=== PATIENT | female | born 1930 | race Caucasian/White ===

== ENCOUNTER 2016-10-21 14:47 | Emergency (ER) | payer OTHER ==
[~2016-10-21] VITALS: Ht 165.1 cm; Wt 58.0 kg
[~2016-10-21 14:47] MED LIST: AEROMIS4 INH; ALBU8I INH; ATEN1TAB74 PO; CEFU250T PO; ENAL10TA7 PO; GLUC500C3 PO; LEVO.025 PO; SIMV20 PO; ZOVI800T13 PO
[2016-10-21 14:52] VITALS: BP 119/68; PULSE 105; RESP 15; TEMP 99.5; O2SAT 99
== END 2016-10-21 18:24 | disposition left against medical advice (07) ==
LOC: PHED 14:47
DX: R42 Dizziness and giddiness (principal); R11.0 Nausea; Z53.21 Procedure and treatment not carried out due to patient leaving prior to being seen by health care provider
CPT/HCPCS: 99281

== ENCOUNTER 2017-08-08 08:39 | Inpatient (IN) | payer OTHER, MEDICARE ==
[2017-08-08] MEDS: ONDANSETRON HCL 4 MG/2 ML VIAL IV PUSH (09:28)
[2017-08-08] MEDS: SODIUM CHLORID 0.9% 500 ML INJ 500 ML IV (09:28)
[2017-08-08 09:32] LABS: AUTOMATED NEUTROPHIL # 10.1 TH/MM3 (1.8-7.7); BASOPHIL # 0.5 TH/MM3 (0-0.2); BASOPHIL % 3.9 % (0.0-2.0); EOSINOPHIL % 0.1 % (0.0-4.0); HEMATOCRIT 38.2 % (35.0-46.0); HEMO FLAGS DIFF FINAL; HEMOGLOBIN 12.6 GM/DL (11.6-15.3); LYMPHOCYTE # 0.5 TH/MM3 (1.0-4.8); MEAN CORPUSCULAR HEMOGLOBIN 30.2 PG (27.0-34.0); MEAN CORPUSCULAR HGB CONC 33.2 % (32.0-36.0); MEAN PLATELET VOLUME 8.1 FL (7.0-11.0); MONO % 6.3 % (0.0-8.0); MONOCYTE # 0.8 TH/MM3 (0-0.9); NEUT % 85.7 % (16.0-70.0); PLATELET COUNT 272 TH/MM3 (150-450); RED BLOOD COUNT 4.19 MIL/MM3 (4.00-5.30); RED CELL DISTRIBUTION WIDTH 12.9 % (11.6-17.2); WHITE BLOOD COUNT 11.9 TH/MM3 (4.0-11.0)
[2017-08-08 09:51] LABS: CALCIUM 8.9 MG/DL (8.5-10.1)
[2017-08-08 09:52] LABS: ALBUMIN 3.4 GM/DL (3.4-5.0); BICARBONATE 24.8 MEQ/L (21.0-32.0); BLOOD UREA NITROGEN 29 MG/DL (7-18); GLUCOSE,RANDOM 125 MG/DL (74-106)
[2017-08-08 09:55] LABS: ALT (GPT) 516 U/L (10-53); AST (GOT) 832 U/L (15-37); GLOMERULAR FILTRATION RATE 42 ML/MIN (>89)
[2017-08-08 09:56] LABS: TOTAL BILIRUBIN ADULT 1.3 MG/DL (0.2-1.0); TOTAL PROTEIN 7.3 GM/DL (6.4-8.2)
[2017-08-08 09:57] LABS: LIPASE 15478 U/L (73-393)
[2017-08-08 09:58] LABS: LACTIC ACID SEPSIS PROTOCOL 1.1 mmol/L (0.4-2.0)
[2017-08-08 09:58] LABS: ALKALINE PHOSPHATASE 138 U/L (45-117)
[2017-08-08 10:00] LABS: ANION GAP 8 MEQ/L (5-15); CHLORIDE 103 MEQ/L (98-107); POTASSIUM 4.6 MEQ/L (3.5-5.1); SODIUM (NA) 136 MEQ/L (136-145)
[2017-08-08 10:08] LABS: TROPONIN I LESS THAN 0.02 NG/ML (0.02-0.05)
[2017-08-08 10:09] LABS: BILIRUBIN, URINE NEG (NEG); BLOOD, URINE NEG (NEG); GLUCOSE,URINE NEG (NEG); KETONE, URINE NEG (NEG); NITRITE,URINE NEG (NEG); PH, URINE 5.5 (5.0-8.5); URINE LEUKOCYTE ESTERASE SMALL (NEG)
[2017-08-08 10:21] LABS: URINE COLOR YELLOW (YELLW/STRAW)
[2017-08-08 10:21] LABS: METHOD OF COLLECTION CATH
[2017-08-08 10:22] LABS: AMORPHOUS SEDIMENT, URINE FEW; BACTERIA, URINE MOD /hpf; COMMENT (UR) CATH-CULTURE IND; CULTURE IF INDICATED CATH CULTURE IND
[2017-08-08] MEDS: IOHEXOL 350 MG/ML 10 ML VIAL (for RAD DIAG) IVCONTRAST (10:54)
[2017-08-08] MEDS: PIPERACIL-TAZO 4.5 GM PREMIX 100 ML IV (11:54)
[2017-08-08] MEDS ORDERED: ONDANSETRON HCL 4 MG/2 ML VIAL IV PUSH (12:15)
[2017-08-08] MEDS ORDERED: MORPHINE SULFATE 4 MG/ML INJ IV PUSH (12:15)
[2017-08-08] MEDS: LACTATED RINGER'S 1000 ML INJ 1,000 ML IV ×2 (12:34→17:40)
[2017-08-08 15:53] LABS: DIRECT BILIRUBIN ADULT 0.7 MG/DL (0.0-0.2)
[2017-08-08] MEDS: SODIUM CHLORIDE 0.9% FLUSH 10 ML FLUSH IV FLUSH ×2 (17:40→21:00)
[2017-08-08 18:19] LABS: ACETAMINOPHEN LESS THAN 2.0 MCG/ML (10.0-30.0)
[2017-08-08] MEDS: ATENOLOL 50 MG TAB PO (22:01)
[2017-08-09] MEDS: LEVOTHYROXINE SODIUM 25 MCG TAB PO (06:17)
[2017-08-09 07:01] LABS: INTERNATIONAL NORMALIZED RATIO 1.1 RATIO; PROTHROMBIN TIME - PATIENT 11.4 SEC (9.8-11.6)
[2017-08-09 07:02] LABS: AUTOMATED NEUTROPHIL # 5.1 TH/MM3 (1.8-7.7); BASOPHIL # 0.1 TH/MM3 (0-0.2); BASOPHIL % 0.7 % (0.0-2.0); EOSINOPHIL # 0.3 TH/MM3 (0-0.4); EOSINOPHIL % 3.6 % (0.0-4.0); HEMATOCRIT 35.3 % (35.0-46.0); HEMO FLAGS DIFF FINAL; HEMOGLOBIN 12.2 GM/DL (11.6-15.3); LYMPH % 21.2 % (9.0-44.0); LYMPHOCYTE # 1.6 TH/MM3 (1.0-4.8); MEAN CELL VOLUME 90.7 FL (80.0-100.0); MEAN CORPUSCULAR HEMOGLOBIN 31.4 PG (27.0-34.0); MEAN CORPUSCULAR HGB CONC 34.6 % (32.0-36.0); MEAN PLATELET VOLUME 8.5 FL (7.0-11.0); MONO % 7.7 % (0.0-8.0); MONOCYTE # 0.6 TH/MM3 (0-0.9); NEUT % 66.8 % (16.0-70.0); PLATELET COUNT 281 TH/MM3 (150-450); RED BLOOD COUNT 3.89 MIL/MM3 (4.00-5.30); RED CELL DISTRIBUTION WIDTH 13.6 % (11.6-17.2); WHITE BLOOD COUNT 7.7 TH/MM3 (4.0-11.0)
[2017-08-09 07:21] LABS: ALBUMIN 3.3 GM/DL (3.4-5.0); ANION GAP 9 MEQ/L (5-15); AST (GOT) 293 U/L (15-37); BICARBONATE 23.4 MEQ/L (21.0-32.0); BLOOD UREA NITROGEN 25 MG/DL (7-18); CHLORIDE 106 MEQ/L (98-107); CREATININE 1.08 MG/DL (0.50-1.00); GLOMERULAR FILTRATION RATE 48 ML/MIN (>89); GLUCOSE,RANDOM 89 MG/DL (74-106); POTASSIUM 4.2 MEQ/L (3.5-5.1); SODIUM (NA) 138 MEQ/L (136-145)
[2017-08-09 07:25] LABS: ALKALINE PHOSPHATASE 126 U/L (45-117); ALT (GPT) 338 U/L (10-53); DIRECT BILIRUBIN ADULT 0.3 MG/DL (0.0-0.2); INDIRECT BILIRUBIN 0.4 MG/DL (0.0-0.8); TOTAL BILIRUBIN ADULT 0.7 MG/DL (0.2-1.0); TOTAL PROTEIN 6.7 GM/DL (6.4-8.2)
[2017-08-09] MEDS: ATENOLOL 50 MG TAB PO ×2 (10:40→22:22)
[2017-08-09] MEDS: ENALAPRIL MALEATE 10 MG TAB PO (10:40)
[2017-08-09] MEDS: LACTATED RINGER'S 1000 ML INJ 1,000 ML IV (22:23)
[2017-08-09] MEDS: SODIUM CHLORIDE 0.9% FLUSH 10 ML FLUSH IV FLUSH (22:23)
[2017-08-10] MEDS: LACTATED RINGER'S 1000 ML INJ 1,000 ML IV ×2 (04:09→08:33)
[2017-08-10] MEDS: LEVOTHYROXINE SODIUM 25 MCG TAB PO (06:40)
[2017-08-10] MEDS: ATENOLOL 50 MG TAB PO ×2 (08:33→21:00)
[2017-08-10] MEDS: ENALAPRIL MALEATE 10 MG TAB PO (08:33)
[2017-08-10] MEDS: SODIUM CHLORIDE 0.9% FLUSH 10 ML FLUSH IV FLUSH ×2 (08:34→21:00)
[2017-08-10 09:27] LABS: ALBUMIN 3.4 GM/DL (3.4-5.0); ALT (GPT) 221 U/L (10-53); AST (GOT) 128 U/L (15-37); DIRECT BILIRUBIN ADULT 0.1 MG/DL (0.0-0.2); LIPASE 395 U/L (73-393)
[2017-08-10 09:28] LABS: ALKALINE PHOSPHATASE 120 U/L (45-117); INDIRECT BILIRUBIN 0.3 MG/DL (0.0-0.8); TOTAL BILIRUBIN ADULT 0.4 MG/DL (0.2-1.0); TOTAL PROTEIN 7.1 GM/DL (6.4-8.2)
[2017-08-10] MEDS: CHOLESTYRAMINE 4 GM PACKET PO ×2 (11:05→21:00)
[2017-08-10 11:25] LABS: HEPATITIS B CORE AB IGM NEGATIVE (NEGATIVE); HEPATITIS B SURFACE ANTIBODY 0 mIU/mL; HEPATITIS B SURFACE ANTIGEN NEGATIVE (NEGATIVE)
[2017-08-10 11:25] LABS: HEPATITIS A AB IGM NEGATIVE (NEGATIVE)
[2017-08-10 18:09] LABS: ALPHA-1-ANTITRYPSIN 154 mg/dL (100 - 190)
[2017-08-11] MEDS: LEVOTHYROXINE SODIUM 25 MCG TAB PO (06:00)
[2017-08-11] MEDS: SODIUM CHLORIDE 0.9% FLUSH 10 ML FLUSH IV FLUSH ×2 (09:00→21:04)
[2017-08-11] MEDS: ENALAPRIL MALEATE 10 MG TAB PO (10:03)
[2017-08-11] MEDS: ATENOLOL 50 MG TAB PO ×2 (10:03→21:05)
[2017-08-11 10:05] LABS: ALBUMIN 3.1 GM/DL (3.4-5.0); AST (GOT) 66 U/L (15-37); DIRECT BILIRUBIN ADULT 0.1 MG/DL (0.0-0.2); LIPASE 689 U/L (73-393)
[2017-08-11] MEDS: LACTATED RINGER'S 1000 ML INJ 1,000 ML IV (10:07)
[2017-08-11 10:09] LABS: ALKALINE PHOSPHATASE 105 U/L (45-117); ALT (GPT) 148 U/L (10-53); INDIRECT BILIRUBIN 0.2 MG/DL (0.0-0.8); TOTAL BILIRUBIN ADULT 0.3 MG/DL (0.2-1.0); TOTAL PROTEIN 6.6 GM/DL (6.4-8.2)
[2017-08-11] MEDS: cefTRIAXone INJ 1,000 MG in SODIUM CHLORIDE 0.9% INJ 100 ML IV (12:01)
[2017-08-11 19:33] LABS: C. DIFF EPI 027 PRESUMPTIVE NEGATIVE (NEGATIVE); C. DIFF TOXIN PCR NEGATIVE (NEGATIVE)
[2017-08-11 23:54] LABS: CYTOMEGALOVIRUS IGM LESS THAN 30.00 AU/mL (())
[2017-08-11 23:54] LABS: CYTOMEGALOVIRUS IGG ANTIBODIES >10.00 U/mL (())
[2017-08-11 23:54] LABS: HEPATITIS A AB, TOTAL NONREACTIVE (NON-REACTVE)
[2017-08-12] MEDS: LEVOTHYROXINE SODIUM 25 MCG TAB PO (06:23)
[2017-08-12] MEDS: SODIUM CHLORIDE 0.9% FLUSH 10 ML FLUSH IV FLUSH (09:00)
[2017-08-12] MEDS: ENALAPRIL MALEATE 10 MG TAB PO (09:24)
[2017-08-12] MEDS: ATENOLOL 50 MG TAB PO (09:24)
== END 2017-08-12 10:28 | disposition home health service (06) | DRG 866 ==
LOC: PHED 08:39 → PHEDA 11:50 → N06A 17:19
DX: B34.9 Viral infection, unspecified (principal); E11.9 Type 2 diabetes mellitus without complications; N39.0 Urinary tract infection, site not specified; E86.0 Dehydration; Z90.49 Acquired absence of other specified parts of digestive tract; R74.8 Abnormal levels of other serum enzymes; K58.9 Irritable bowel syndrome, unspecified; I10 Essential (primary) hypertension; K21.9 Gastro-esophageal reflux disease without esophagitis; E03.9 Hypothyroidism, unspecified; E78.5 Hyperlipidemia, unspecified; K57.30 Diverticulosis of large intestine without perforation or abscess without bleeding; Z90.710 Acquired absence of both cervix and uterus; Z86.010 Personal history of colon polyps; Z85.118 Personal history of other malignant neoplasm of bronchus and lung
CPT/HCPCS: 70450; 71045; 74177; 74181; 76377; 80048; 80053; 80076; 80307; 81001; 82103; 82248; 83605; 83690; 84484; 85025; 85610; 86317; 86644; 86645; 86705; 86708; 86709; 87040; 87077; 87086; 87186; 87340; 87493; 87804; 87804-59; 96361; 96374; 97110-GP; 97116-GP; 97162-GP; 99285-25